=== PATIENT | male | born 1975 | race Caucasian/White ===

== ENCOUNTER → 2021-01-06 | Outpatient (CLI) | payer OTHER ==
--- NOTE | 2021-01-06 07:46 | US ---
EXAMINATION TYPE: US liver DATE OF EXAM: 01/06/2021 COMPARISON: NONE CLINICAL HISTORY: R10.9 ABD PAIN. EXAM MEASUREMENTS: Liver Length: 17.3 cm Gallbladder Wall: 0.2 cm CBD: 0.3 cm Right Kidney: 10.1x5.7x5.9 cm Pancreas: wnl Liver: wnl Gallbladder: wnl Evidence for sonographic Landa's sign: No CBD: wnl Right Kidney: wnl IMPRESSION: No distinct abnormality seen.
== END | disposition home or self-care (01) ==
LOC: RADUSWWP 07:02
PROVIDERS: ATTEND Family Medicine
DX: R10.9 Unspecified abdominal pain (principal)
CPT/HCPCS: 76705